=== PATIENT | female | born 1995 | race Two or more races ===

== ENCOUNTER 2019-01-21 22:27 | Emergency (ER) | payer MEDICAID ==
[~2019-01-21] VITALS: Ht 165.1 cm; Wt 52.2 kg
--- NOTE | 2019-01-21 22:30 | NUR ---
PT BIBRA C/O SELF INFLICTED LAC ON RIGHT LOWER EXTREMITY. PT EMOTIONAL AND CRYING ON ARRIVAL. UNCOOPERATIVE ANSWERING QUESTIONS. DENIES SI AT THIS TIME. NOTED SUPERFICIAL WOUNDS BILATERAL LOWER EXTREMITIES AND LAC ON RIGHT LOWER EXTREMITY ABOUT 8", NO ACTIVE BLEEDING. PT PLACED ON MONITOR, WILL CONTINUE TO MONITOR
[2019-01-21] MEDS ORDERED: TDAP [DIPH/PERTUSSIS/TET] 0.5 ML VIAL IM ONE ×2 (22:58→23:00)
[2019-01-21 23:12] LABS: BASOPHILS % (AUTO) 0.5 % (0.0-2.0); EOSINOPHILS % (AUTO) 3.9 % (0.0-6.0); HEMATOCRIT 39 % (33-45); HEMOGLOBIN 13.2 g/dL (11.5-14.8); LYMPHOCYTES # (AUTO) 2.6 /CMM (0.8-4.8); LYMPHOCYTES % (AUTO) 34.7 % (20.0-44.0); MEAN CORPUSCULAR HGB CONC 34 g/dl (31.0-36.0); MEAN CORPUSCULAR VOLUME 90 fL (82-100); MONOCYTES # (AUTO) 0.6 /CMM (0.1-1.30); MONOCYTES % (AUTO) 8.6 % (2.0-12.0); NEUTROPHILS # (AUTO) 3.9 /CMM (1.8-8.9); NEUTROPHILS % (AUTO) 52.3 % (43.0-81.0); PLATELET COUNT (AUTO) 234 /CMM (150-450); WHITE BLOOD COUNT (AUTO) 7.4 K/uL (4.3-11.0)
[2019-01-21 23:34] LABS: CALCIUM, SERUM 8.8 mg/dL (8.5-10.1); CARBON DIOXIDE 27 mmol/L (21-32); CHLORIDE 107 mmol/L (98-107); GLUCOSE 94 mg/dL (74-106); POTASSIUM 3.7 mmol/L (3.5-5.1); SODIUM SERUM 144 mmol/L (136-145); UREA NITROGEN, BLOOD 11 mg/dL (7-18)
[2019-01-21 23:39] LABS: ALANINE AMINOTRANSFERASE 22 U/L (12-78); ALBUMIN 3.8 g/dL (3.4-5.0); ALKALINE PHOSPHATASE 76 U/L (46-116); ASPARTATE AMINOTRANSFERASE 17 U/L (15-37); BILIRUBIN,DIRECT 0.1 mg/dL (0.0-0.2); BILIRUBIN,TOTAL 0.3 mg/dL (0.2-1.0); TOTAL PROTEIN, SERUM 7.3 g/dL (6.4-8.2)
[2019-01-21 23:40] LABS: ACETAMINOPHEN 0 ug/ml (10-30); ALCOHOL, BLOOD < 3 mg/dL (0-0); SALICYLATE 1.6 mg/dL (2.8-20.0)
[2019-01-22] MEDS ORDERED: TDAP [DIPH/PERTUSSIS/TET] 0.5 ML VIAL IM ONE (02:55)
--- NOTE | 2019-01-22 03:00 | NUR ---
PT ABLE TO AMBULATE WITH STEADY GAIT TO RESTROOM. URINE COLLECTED AND SENT TO LAB
[2019-01-22 03:21] LABS: APPEARANCE,URINE Slightly Cloudy (CLEAR); BILIRUBIN,URINE SMALL (NEGATIVE); BLOOD, URINE Negative Ery/uL (NEGATIVE); COLOR,URINE Dark (YELLOW); KETONES,URINE Trace (NEGATIVE); LEUKOCYTE ESTERASE ,URINE Trace (NEGATIVE); NITRITE, URINE Positive (NEGATIVE); PROTEIN,URINE 30 mg/dl (NEGATIVE); UGLUCOSE Negative (NEGATIVE)
[2019-01-22 03:32] LABS: BACTERIA,URINE Moderate /HPF (None Seen); RBC,URINE 0-2 /HPF (0-2); SQUAMOUS EPITHELIAL CELL,UR Few /HPF (None Seen)
--- NOTE | 2019-01-22 03:37 | NUR ---
PT CALM AND COOPERATIVE. VITAL SIGNS STABLE. DENIES SI AT THIS TIME. WILL CONTINUE TO MONITOR
--- NOTE | 2019-01-22 05:54 | NUR ---
PT RESTING COMFORTABLY IN BED. VITAL SIGNS STABLE. WILL CONTINUE TO MONITOR
--- NOTE | 2019-01-22 08:55 | NUR ---
BREAKFAST TRAY PROVIDED.
--- NOTE | 2019-01-22 09:02 | NUR ---
PT AWAKE, DR JEFFERSON AT BEDSIDE.
--- NOTE | 2019-01-22 09:05 | NUR ---
PT ASKED OF SI, PT STATED "A LITTLE" . WOULD LIKE A PSYCH EVAL FOR THIS PT.
--- NOTE | 2019-01-22 09:18 | NUR ---
CONTACTED [facility]. BRETT 45MIN-1HR.
--- NOTE | 2019-01-22 11:38 | NUR ---
[facility] AT BEDSIDE. PT REFUSING TO SPEAK WITH CRISIS STUDENT COUNSELOR. MADE AWARE
--- NOTE | 2019-01-22 14:12 | NUR ---
CALLED FOR FOOD TRAY
--- NOTE | 2019-01-22 14:22 | NUR ---
PT REC'D A LUNCH TRAY AND IS TOLERATING PO WELL.
--- NOTE | 2019-01-22 17:16 | NUR ---
CALLED [facility] FOR PSYCH EVAL, ETA WITHIN THE HOUR
--- NOTE | 2019-01-22 18:28 | NUR ---
[facility] E[facility]OL[facility] SPOKE TO [facility] OF [facility] [phone]. THEY ASKED FOR A TEST. MADE AWARE, PLACED ORDER. AWAITING RESULTS AND WILL CALL BACK.
--- NOTE | 2019-01-22 19:31 | NUR ---
REPORT GIVEN TO АННА PEREZ FOR [facility]
--- NOTE | 2019-01-22 20:50 | NUR ---
CALLED SO [facility], WAS INFORMED THEY DID NOT RECEIVE THE CRISIS CLINICIANS NOTE OR PT'S TEST RESULT. WILL REFAX.
--- NOTE | 2019-01-22 23:00 | NUR ---
CALLED [facility] TO FOLLOW UP ON STATUS OF PT, TRANSFERRED CALL TO KUSUM PEREZ TO GIVE REPORT.
--- NOTE | 2019-01-22 23:05 | NUR ---
REPORT GIVEN TO ANA MELARA
--- NOTE | 2019-01-22 23:10 | NUR ---
CALLED [facility] FOR TRANSPORT TO [facility], ETA 2 HOURS, TRIP# [phone]
--- NOTE | 2019-01-22 23:21 | NUR ---
PT ACCEPTED AT [facility] BY DR. LOYOLA, PT IS GOING TO ROOM 605-A. AMBULANCE TO GO TO EMERGENCY ROOM FIRST TO REGISTER BEFORE GOING TO THE FLOOR.
--- NOTE | 2019-01-22 23:35 | NUR ---
ASSUMED CARE OF PT.
--- NOTE | 2019-01-22 23:35 | NUR ---
A PRECAUTION, MARIA D HUFFMAN) IS AT THE BEDSIDE A SITTER.
--- NOTE | 2019-01-22 23:48 | NUR ---
PT APPEARS TO BE SLEEPING SOUNDLY WITH NO S/S OF PAIN OR DISTRESS. VSS.
[2019-01-23 00:30] VITALS: BP 104/66
--- NOTE | 2019-01-23 00:34 | NUR ---
PT APPEARS TO BE SLEEPING SOUNDLY WITH NO S/S OF PAIN OR DISTRESS.
--- NOTE | 2019-01-23 01:17 | NUR ---
REPORT GIVEN TO [facility] EMT.
== END 2019-01-23 01:25 ==
LOC: EDBD 22:33 → ER 22:33
DX: S71.111A Laceration without foreign body, right thigh, initial encounter (principal); F19.10 Other psychoactive substance abuse, uncomplicated; X78.8XXA Intentional self-harm by other sharp object, initial encounter; Y93.89 Activity, other specified; Y92.89 Other specified places as the place of occurrence of the external cause; Y99.8 Other external cause status
CPT/HCPCS: 12004; 36415; 80048; 80076; 80305; 80307; 80329; 81001; 84703; 85025; 87086; 90471; 90715; 99285; A6403; G0480; 81000-TC